=== PATIENT | female | born 1990 | race African-American/Black ===

== ENCOUNTER 2024-03-15 02:59 | Outpatient (CLI) | payer SELFPAY ==
[2024-03-15] MEDS: LACTATED RINGERS 1,000 ML IV ONE (03:35)
[2024-03-15] MEDS: ACETAMINOPHEN IV (For NPO) 1,000 MG in EMPTY BAG 1 BAG IVPB ONE (03:45)
[2024-03-15 06:07] VITALS: BP 126/80; PULSE 106; RESP 20; TEMP 98.1
--- NOTE | 2024-03-28 09:38 | P.MSEPDOC ---
Presenting Problems - Arrival Data Date of Arrival on Unit: 03/15/24 Time of Arrival on Unit: 02:59 Mode of Transport: Stretcher - Complaint OB-Reason for Admission/Chief Complaint: Possible Onset of Labor Medical History - Information : 4 Para: 3 Term: 3 : 0 Abortions: Spontaneous or Elective: 0 Number of Living Children: 3 - Gestational Age Gestational Age by BRENDA (wks/days): 22 Weeks and 1 Days Review of Systems - Review of Systems Constitutional: No problems Breast: No problems ENT: No problems Cardiovascular: No problems Respiratory: No problems Gastrointestinal: No problems Genitourinary: No problems Musculoskeletal: No problems Neurological: No problems Skin: No problems Vital Signs - Temperature Temperature: 98.1 F Temperature Source: Temporal Artery Scan - Pulse Right Pulse Rate: 106 Pulse Assessment Method: Pulse Oximetry - Respirations Respiratory Rate: 20 Oxygen Delivery Method: Room Air - Blood Pressure Right Arm Blood Pressure: 126/80 Blood Pressure Mean: 95 Blood Pressure Source: Automatic Cuff Medical Screen Scoring - Cervical Exam Membranes: Intact - Uterine Contractions Resting: Soft to palpation - Assessment - Baby A Baseline FHR: 150-160 Physician Notification - Physician Notified Physician Notified Date: 03/15/24 Physician Notified Time: 03:23 Physician: Joselin Yoo New Order Received: Yes (LR 1L bolus, IV Tylenol 1000mg, repeat FHT via doppler after) - Notification Comment Comment: Okay to d/c if no ctx, pt pain improved and tolerable, FHT wnl. Maternal Triage Index - Maternal Triage Index Presenting for scheduled procedure w/no complaint: No - Stat/Priority 1 Stat Priority 1: No - Urgent/Priority 2 Urgent Priority 2: Yes Provider Notified: Joselin Yoo Provider Notified Time: 03:23 Criteria Met for Priority 2: pt presents with c/o ctx and back pain Disposition - Disposition OB Disposition: Discharge to home Discharge Date: 03/15/24 Discharge Time: 05:15 I agree with the RN Medical Screening Exam: Yes Case reviewed; plan agreed upon as documented in EMR&OBIX.: Yes Diagnosis: RELATED CONDITIONS, UNSPECIFIED, SECOND TRIMESTER
== END 2024-03-15 05:15 ==
LOC: FBPOP 02:59
PROVIDERS: ATTEND Obstetrics & Gynecology Obstetrics
DX: O47.02 False labor before 37 completed weeks of gestation, second trimester (principal); Z3A.22 22 weeks gestation of pregnancy
CPT/HCPCS: 99214; 96361; 96365; J0131; 36415; 99213